=== PATIENT | female | born 1985 | race African-American/Black ===

== ENCOUNTER 2021-10-25 07:05 | Outpatient (REF) | payer OTHER, SELFPAY ==
[2021-10-25 11:24] LABS: Binax Now Covid-19 Ag Negative (Negative)
[2021-10-25 11:25] LABS: Binax Internal Control QC Valid
== END 2021-10-25 07:06 | disposition home or self-care (01) ==
LOC: HO.HMGCLDS 07:05
PROVIDERS: Visit Provider Internal Medicine
DX: Z20.822 Contact with and (suspected) exposure to COVID-19 (principal)
CPT/HCPCS: 36415; C9803